=== PATIENT | female | born 1995 | race Caucasian/White ===

== ENCOUNTER → 2019-12-29 | Outpatient (CLI) | payer BC ==
[~2019-12-29] MED LIST: IBU800 M1 PO; LOVENOX 4040 MG/0.4 SQ; PRENATAL MVI
== END ==
LOC: ZCOL.LAB
DX: Z20.828 Contact with and (suspected) exposure to other viral communicable diseases (principal)

== ENCOUNTER 2020-01-01 16:13 | Inpatient (IN) | payer BC ==
[~2020-01-01] VITALS: Ht 177.8 cm; Wt 84.1 kg
[2020-01-02] VITALS (29 sets, daily range): BP systolic 94–128; BP diastolic 47–76; PULSE 67–130; TEMP 97.7–98.7
--- NOTE | 2020-01-02 07:10 | NUR ---
Pt arrives on unit ambulatory with spouse for IOL. Denies regular ctx, LOF, vaginal bleeding, and reports GFM. Changed into clean gown. EFM and toco applied. VSS. IV started in LF. Labs drawn. LR infusing. Admission assessment completed. Consents signed. Pt updated on POC. Bed locked in low position. Call light within reach. SVE per this RN /-2 with BOWI. Pitocin infusing. No questions or concerns at this time.
[2020-01-02] MEDS ORDERED: PRENATAL MVI (07:23)
[2020-01-02] MEDS ORDERED: LOVENOX 4040 MG/0.4 SQ (07:23)
[2020-01-02 08:02] LABS: BASO % 0.2 % (0.0-2.0); EOS # 0.1 (0.0-0.7); EOS % 0.7 % (0-4.0); GRAN # 10.2 (1.4-6.5); GRAN % 77.6 % (42.2-75.2); HEMATOCRIT 39.6 % (37.0-47.0); HEMOGLOBIN 13.6 g/dl (12.5-16.0); LYMPH # 2.2 (1.2-3.4); LYMPH % 16.4 % (20.0-51.0); MEAN CELL VOLUME 88 fl (80.0-100.0); MEAN CORPUSCULAR HEMOGLOBIN 30 pg (27.0-31.0); MEAN CORPUSCULAR HGB CONC 34 g/dl (33.0-37.0); MEAN PLATELET VOLUME 11.2 fl (7.4-10.4); MONO # 0.6 (0.1-0.6); MONO % 4.6 % (1.7-9.3); PLATELET COUNT 221 K/mm3 (130-400); REDCELL DISTRIBUTION WIDTH-CV 12.8 % (11.5-14.5)
--- NOTE | 2020-01-02 11:39 | NUR ---
SVE per this RN C/+1. Dr. Soto notified and requested to unit. Pt prepped for delivery and coached on pushing efforts. Bladder drained with harris. 1149-Pt begins pushing. Moves vertex well. 1154-Late decelerations noted with pushing. FHR response to SS. 1200-Dr. Soto on unit. Discusses FHR and vacuum assisted delivery. Pt agrees to POC. 1205-Vacuum applied. Pt begins pushing. 1208-Vacuum assisted delivery attended by Dr. Soto. Cord clamped x 2 and cut from umbilicus. Infant dried and placed on mother's abdomen. Care of infant to Kristen Piedra RN. Apgars 8/9/9. 1211- of placenta. Pitocin bolus infusing per protocol. Fundus firm at umbilicus. Bleeding WNL. Second degree laceration repaired per provider. Pericare performed. Ice pack applied. Bed locked in low position. Call light within reach. No questions or concerns at this time.
--- NOTE | 2020-01-02 18:20 | NUR ---
Report recieved. Sitting up in rocking chair. Updated whiteboard and reviewed POC. Denied questions or concerns.
--- NOTE | 2020-01-02 18:45 | NUR ---
Voided 800mls at this time. Fundus firm and at the umbilicus. INT dc'd per physician order from the left wrist. Up to shower. Tolerated well.
[2020-01-03 07:25] VITALS: BP 103/67; PULSE 78; TEMP 97.9
[2020-01-03] MEDS ORDERED: IBU800 M1 PO (09:25)
== END 2020-01-03 14:30 | disposition home or self-care (01) | DRG 806 ==
LOC: OB 16:13 → LDR 01-02 06:57 → OB 01-02 14:30
PROVIDERS: ADMIT Obstetrics & Gynecology
PROC: 10D07Z6 Extraction of Products of Conception, Vacuum, Via Natural or Artificial Opening (ICD-10-PCS; principal; 2020-01-02)
PROC: 0KQM0ZZ Repair Perineum Muscle, Open Approach (ICD-10-PCS; 2020-01-02)
DX: O76 Abnormality in fetal heart rate and rhythm complicating labor and delivery (principal); E72.12 Methylenetetrahydrofolate reductase deficiency; Z37.0 Single live birth; O99.284 Endocrine, nutritional and metabolic diseases complicating childbirth; O70.1 Second degree perineal laceration during delivery; Z3A.40 40 weeks gestation of pregnancy
CPT/HCPCS: J2590; J2795; J7120

== ENCOUNTER → 2020-01-12 | Outpatient (CLI) | payer BC ==
--- NOTE | 2020-01-12 16:14 | NUR ---
Pt, Gregoria Fuentes presents for outpatient consult with 10 day old baby boy, Kyle Fuentes, for assitance with getting Kyle to latch. Kyle was born by on 01/02/2022 and weighed 7#4.8oz (3310 gms). Today he weighs 7#6.7oz (3364 gms). Pt reports Kyle had latch difficulty from the start, and has tried feeding him with SNS and a nipple shield but he does not remain latched, so she started pumping and bottle feeding after discharge from the hospital. Currently Kyle drinks 2-3 oz per bottle feeding. Pt is pumping every 3 hours, and collects almost all he needs for bottle feeding, but does fill in a little with formula. LC assists pt with latching, trying without and with the shield, gtts of EBM to encourage suckling after he appears to latch but Kyle will not hold the nipple in the mouth with his tongue so does not establish a latch. After a reasonable amount of trying, Kyle is then bottle fed by this LC while pt pumps. LC notes Kyle has a mild-moderate tongue tie. Pt states it feels like he bites when he does try to latch. With the bottle feeding LC notes he does seem to keep his tongue across the gum line but the bottle is easily pulled from his grasp. With support under his tongue Kyle holds the bottle better and nurses pretty easily. Pt states he usually has to work much harder and longer to tranfer even from the bottle. The tongue support seems to help and may be related to why he does not latch to the breast. Pt will consider suggestions to have Kyle evaluated by Dr. He at [facility]. Meanwhile she will continue pumping and bottle feeding. LC suggests letting Kyle wake on his own at [facility] since he has had adequate weight gain rather than setting an alarm for every three hours. POC: Continue pumping and bottle feeding, increasing amount to 3oz per feeding, 8 times daily. Pt may elect to give one formula bottle at [facility] and not pump to aid in her sleep opportunity. Consider evaluation for tongue tie. F/U: Pt to contact this LC in the next week. Questions invited and answered.
== END ==
LOC: LAC 10:47
DX: Z39.1 Encounter for care and examination of lactating mother (principal); Z71.89 Other specified counseling

== ENCOUNTER → 2020-08-08 | Outpatient (CLI) | payer BC | LOC: COL.RAD 07:41 | DX: R22.1 Localized swelling, mass and lump, neck (principal) ==